=== PATIENT | female | born 1955 | race Two or more races ===

== ENCOUNTER 2019-08-15 15:06 | Emergency (ER) | payer MEDICAID ==
[~2019-08-15] VITALS: Ht 149.9 cm; Wt 52.2 kg
--- NOTE | 2019-08-15 16:00 | NUR ---
Pt isabel, from care facility, for medical clearance for psych admission to [facility]. "runs [place] traffic" per report. Pt denies SI/HI. Pt calm and cooperative, aaox4, vss, breathing even and unlabored on ra w/ no acute distress noted. Pt connected to the monitor and pox
--- NOTE | 2019-08-15 17:13 | NUR ---
GLAZING MACHINE OPERATOR AT BEDSIDE FOR BLOOD DRAW
--- NOTE | 2019-08-15 17:21 | NUR ---
URINE COLLECTED AND SENT TO LAB
[2019-08-15 17:23] LABS: BASOPHILS % (AUTO) 0.4 % (0.0-2.0); EOSINOPHILS % (AUTO) 1.6 % (0.0-6.0); HEMATOCRIT 34 % (33-45); HEMOGLOBIN 11.5 g/dL (11.5-14.8); LYMPHOCYTES # (AUTO) 1.7 /CMM (0.8-4.8); LYMPHOCYTES % (AUTO) 22.7 % (20.0-44.0); MEAN CORPUSCULAR HGB CONC 33 g/dl (31.0-36.0); MEAN CORPUSCULAR VOLUME 93 fL (82-100); MONOCYTES % (AUTO) 12.8 % (2.0-12.0); NEUTROPHILS # (AUTO) 4.7 /CMM (1.8-8.9); NEUTROPHILS % (AUTO) 62.5 % (43.0-81.0); PLATELET COUNT (AUTO) 199 /CMM (150-450); WHITE BLOOD COUNT (AUTO) 7.5 K/uL (4.3-11.0)
[2019-08-15] MEDS ORDERED: IBUP-1955 PO (17:31)
[2019-08-15] MEDS ORDERED: FAMO20TA8 PO (17:31)
[2019-08-15] MEDS ORDERED: OLAN20TA3 PO (17:31)
[2019-08-15] MEDS ORDERED: DIVA-78 PO (17:31)
[2019-08-15 17:40] LABS: CALCIUM, SERUM 8.2 mg/dL (8.5-10.1); CARBON DIOXIDE 23 mmol/L (21-32); CHLORIDE 106 mmol/L (98-107); CREATININE 0.6 mg/dL (0.6-1.3); GLUCOSE 113 mg/dL (74-106); POTASSIUM 4.3 mmol/L (3.5-5.1); SODIUM SERUM 139 mmol/L (136-145); UREA NITROGEN, BLOOD 20 mg/dL (7-18)
[2019-08-15 18:01] LABS: APPEARANCE,URINE Slightly Cloudy (CLEAR); BILIRUBIN,URINE SMALL (NEGATIVE); BLOOD, URINE Negative Ery/uL (NEGATIVE); COLOR,URINE Yellow (YELLOW); KETONES,URINE 15 (NEGATIVE); LEUKOCYTE ESTERASE ,URINE Negative (NEGATIVE); NITRITE, URINE Negative (NEGATIVE); PH,URINE 5.5 (5.0-8.0); PROTEIN,URINE Trace mg/dl (NEGATIVE); UGLUCOSE Negative (NEGATIVE); UROBILINOGEN,URINE 0.2 EU/dL (0.2)
[2019-08-15 18:05] LABS: ALANINE AMINOTRANSFERASE 41 U/L (12-78); ALBUMIN 3.1 g/dL (3.4-5.0); ALCOHOL, BLOOD < 3 mg/dL (0-0); ALKALINE PHOSPHATASE 63 U/L (46-116); ASPARTATE AMINOTRANSFERASE 46 U/L (15-37); BILIRUBIN,TOTAL 0.3 mg/dL (0.2-1.0); TOTAL PROTEIN, SERUM 7.1 g/dL (6.4-8.2)
[2019-08-15 18:06] LABS: ACETAMINOPHEN < 2 ug/ml (10-30); SALICYLATE < 2.8 mg/dL (2.8-20.0)
[2019-08-15 18:22] LABS: BACTERIA,URINE Rare /HPF (None Seen); RBC,URINE 0-2 /HPF (0-2); SQUAMOUS EPITHELIAL CELL,UR Few /HPF (None Seen); WBC,URINE 0-2 /HPF (0-3)
--- NOTE | 2019-08-15 20:08 | NUR ---
CALLED PINKY SPANISH LINGUIST
--- NOTE | 2019-08-15 21:10 | NUR ---
ADRIANA CEBALLOS CRISISTEAM AT BEDSIDE FOR EVAL.
[2019-08-15] MEDS ORDERED: OLANZAPINE 5 MG TABLET ONE ×2 (22:00→23:49)
[2019-08-15] MEDS: OLANZAPINE 5 MG TABLET PO ONE ×2 (22:10→23:53)
--- NOTE | 2019-08-15 23:45 | NUR ---
SPOKE W/ ART PATIENT NEEDS TO STAY UNTIL CONFERENCE SERVICES COORDINATOR COMES
--- NOTE | 2019-08-16 00:34 | NUR ---
Patient is resting comfortably in bed with eyes closed. Easily aroused. VSS
--- NOTE | 2019-08-16 03:03 | NUR ---
PT ASLEEP ON BED, EASILY AROUSABLE, V/S STABLE, KEPT RESTED AND COMFORTABLE, WILL CONTINUE TO MONITOR.
--- NOTE | 2019-08-16 08:16 | NUR ---
PATIENT A/OX3, BREATHING EVEN AND UNLABORED, VERBALLY RESPONSIVE. STUDENT RECRUITER AT BEDSIDE FOR CONSULT. ORDERED FOOD TRAY.
--- NOTE | 2019-08-16 08:50 | NUR ---
PATIENT ATE BREAKFAST AND TOLERATED WELL.
--- NOTE | 2019-08-16 09:41 | NUR ---
Patient is resting comfortably in bed, watching TV. Easily aroused.
--- NOTE | 2019-08-16 09:56 | NUR ---
Social service consult requested by Dr. Tavarez for possible psychiatric placement. Per MD notes and chart review, pt is a 64-year-old male who presented to the ED for medical clearance prior to [facility] admission. QUALITY PROCESS ENGINEER met with the pt. bedside. QUALITY PROCESS ENGINEER introduced self and explained her role. Pt. is alert and oriented x 3. Pt states she was residing at [facility] in [place] but is unable to provide exact address. Pt. states she has a brother named Mukul in [place] but doesn't know his phone number. Pt has a history of mood disorder and take Depakote. Pt. is a poor historian. Pt denies suicidal and homicidal ideations and visual/auditory hallucinations at this time. Per JESSICA Rios and LIN Bustamante in ED, pt. was dropped off from [facility] by someone. QUALITY PROCESS ENGINEER looked at pt's chart and noticed pt's medications with name of pharmacy. QUALITY PROCESS ENGINEER contacted [facility] pharmacy who informed QUALITY PROCESS ENGINEER that pt. is residing at [facility] in [place]. QUALITY PROCESS ENGINEER contacted [facility] and spoke with Dena who informed QUALITY PROCESS ENGINEER that pt. was discharged from their facility and sent to [facility] in [place] . QUALITY PROCESS ENGINEER contacted [facility] and spoke with Kenisha regarding their pt. Per Kenisha, they sent the pt. to [facility] assuming [facility] is able to provide penitentiary care. QUALITY PROCESS ENGINEER informed Kenisha, that [facility] does not provide penitentiary care and pt. is medically and psychiatrically cleared for discharge. Kenisha informed QUALITY PROCESS ENGINEER they will find a SNF for the pt. and pickle pumper pt in an hour and a half. QUALITY PROCESS ENGINEER to follow up with Kenisha again, in an hour.
--- NOTE | 2019-08-16 11:22 | NUR ---
COMPUTER SECURITY COORDINATOR received a call from Kenisha from [facility] informing COMPUTER SECURITY COORDINATOR, they found an assisted living for the pt. and a bellman driver named Colt is coming to warehouse picker the pt. from [place]. COMPUTER SECURITY COORDINATOR updated LIN Appiah in ED.
--- NOTE | 2019-08-16 12:55 | NUR ---
PER MELISSA [phone], PT WILL BE PICKED UP BY [facility] AT [phone]
--- NOTE | 2019-08-16 13:15 | NUR ---
DL received a call from Kenisha from pt's facility informing DL Leal is outside the ED to cotton picking machine operator the pt.
--- NOTE | 2019-08-16 13:25 | NUR ---
Patient discharged to home in stable condition. Written and verbal after care instructions given. Patient verbalizes understanding of instruction. Pt was being walked to car sent by facility by Jacquelyn CEBALLOS, EMT, and Ricky VIDALES
[2019-08-16 13:26] VITALS: BP 112/68
== END 2019-08-16 13:26 | disposition home or self-care (01) ==
LOC: ER 15:23
DX: F23 Brief psychotic disorder (principal); I10 Essential (primary) hypertension; K21.9 Gastro-esophageal reflux disease without esophagitis; F39 Unspecified mood [affective] disorder; Z79.899 Other long term (current) drug therapy
CPT/HCPCS: 36415; 80048; 80076; 80305; 80307; 80329; 81001; 85025; 99284; G0480; 81000-TC